=== PATIENT | male | born 1965 | race Caucasian/White ===

== ENCOUNTER → 2019-04-13 12:04 | Outpatient (BNVA) | payer SELFPAY | PROVIDERS: Family Provider Family Medicine; PCP Family Medicine; Visit Provider Family Medicine | DX: I10 Essential (primary) hypertension (principal); L60.0 Ingrowing nail; E66.01 Morbid (severe) obesity due to excess calories | CPT/HCPCS: 80053; 80061; 82044; 85025 ==

== ENCOUNTER → 2019-10-12 14:31 | Outpatient (BNVA) | payer MEDICAID, SELFPAY | PROVIDERS: Family Provider Family Medicine; PCP Family Medicine; Visit Provider Family Medicine | DX: I10 Essential (primary) hypertension (principal); M25.571 Pain in right ankle and joints of right foot; M25.572 Pain in left ankle and joints of left foot; G89.29 Other chronic pain; K22.70 Barrett's esophagus without dysplasia; Z79.891 Long term (current) use of opiate analgesic | CPT/HCPCS: 80307; 80373 ==

== ENCOUNTER → 2020-04-20 11:38 | Outpatient (BNVA) | payer MEDICAID, SELFPAY | PROVIDERS: Family Provider Family Medicine; PCP Family Medicine; Visit Provider Family Medicine | DX: I10 Essential (primary) hypertension (principal); R35.1 Nocturia; E66.01 Morbid (severe) obesity due to excess calories; M25.571 Pain in right ankle and joints of right foot; M25.572 Pain in left ankle and joints of left foot; G89.29 Other chronic pain | CPT/HCPCS: 80053; 80061; 82043; 84153; 85025 ==

== ENCOUNTER 2020-08-21 20:00 | Outpatient (CLI) | payer MEDICARE, MEDICAID, SELFPAY | END 2020-08-21 20:01 | disposition home or self-care (01) | LOC: SLEEP 08-22 08:56 | PROVIDERS: Family Provider Family Medicine; PCP Family Medicine; Visit Provider Family Medicine | DX: G47.10 Hypersomnia, unspecified (principal); R06.83 Snoring; R53.83 Other fatigue; G47.33 Obstructive sleep apnea (adult) (pediatric) | CPT/HCPCS: 95811 ==

== ENCOUNTER → 2020-10-01 14:00 | Outpatient (BNVA) | payer MEDICARE, MEDICAID, SELFPAY | PROVIDERS: Family Provider Family Medicine; PCP Family Medicine; Visit Provider Podiatrist Foot & Ankle Surgery | DX: M79.671 Pain in right foot (principal); M79.672 Pain in left foot; Z79.891 Long term (current) use of opiate analgesic | CPT/HCPCS: 73630 ==

== ENCOUNTER → 2020-10-02 15:26 | Outpatient (BNVA) | payer MEDICARE, MEDICAID, SELFPAY | PROVIDERS: Family Provider Family Medicine; PCP Family Medicine; Visit Provider Podiatrist Foot & Ankle Surgery | DX: M79.671 Pain in right foot (principal); M79.672 Pain in left foot; Z79.891 Long term (current) use of opiate analgesic; E66.01 Morbid (severe) obesity due to excess calories | CPT/HCPCS: 83036 ==

== ENCOUNTER → 2020-11-01 11:45 | Outpatient (BNVA) | payer MEDICARE, MEDICAID, SELFPAY | PROVIDERS: Family Provider Family Medicine; PCP Family Medicine; Visit Provider Podiatrist Foot & Ankle Surgery | DX: M79.671 Pain in right foot (principal); M79.672 Pain in left foot; M21.41 Flat foot [pes planus] (acquired), right foot; M21.42 Flat foot [pes planus] (acquired), left foot; M76.821 Posterior tibial tendinitis, right leg; M76.822 Posterior tibial tendinitis, left leg; E11.42 Type 2 diabetes mellitus with diabetic polyneuropathy; Z79.891 Long term (current) use of opiate analgesic | CPT/HCPCS: 88304 ==

== ENCOUNTER 2020-12-18 14:09 | Outpatient (CLI) | payer MEDICARE, MEDICAID, SELFPAY ==
--- NOTE | 2020-12-18 14:15 | USCV_ITS ---
NOTE: Report was unsigned for reason: Order was edited. Original Signature date and time was: 12/18/20 @ 15[address] Age: 55 Gender: M : 1965 Exam Date: 12/18/2020 14:43 Ordering Phys: Trish Lake MD Technologist: Kim Kumar [place] [facility] [place]: PULMONARY EMBOLIS W/ACUTE PULMONALE BP: 148 / 99 HR: 72 Rhythm: Sinus Technical Quality: Adequate MEASUREMENTS (Male / Female) Normal Values 2D ECHO LV Diastolic Diameter PLAX 6.0 cm 4.2 - 5.9 / 3.9 - 5.3 cm LV Systolic Diameter PLAX 4.1 cm IVS Diastolic Thickness 1.8 cm 0.6 - 1.0 / 0.6 - 0.9 cm IVS Systolic Thickness 2.1 cm LVPW Diastolic Thickness 1.8 cm 0.6 - 1.0 / 0.6 - 0.9 cm LVPW Systolic Thickness 2.4 cm LVOT Diameter 2.0 cm LV Ejection Fraction 2D Teich 58.2 % LV Ejection Fraction MOD 2C 57.8 % LV Ejection Fraction 2C AL 59.7 % LA Diameter 3.6 cm LA Width 3.3 cm LA Height 4.4 cm RA Width 3.1 cm RA Height 4.5 cm Aorta at Sinotubular Diameter 2.9 cm M-MODE Aortic Annulus Diameter 3.1 cm LA Ao Ratio MM 1.1 MV E Point Septal Separation 0.6 cm DOPPLER AV Peak Velocity 129.0 cm/s LVOT Peak Velocity 102.0 cm/s AV Area Cont Eq vti 2.4 cm squared AV Area Cont Eq pk 2.5 cm squared MV Peak Velocity 79.0 cm/s MV Area PHT 3.5 cm squared Mitral E to A Ratio 0.9 MV E' Velocity 36.0 cm/s Mitral E to MV E' Ratio 8.1 Mitral E to LV E' Lateral Ratio 6.3 Mitral E to LV E' Septal Ratio 11.5 TR Peak Velocity 307.1 cm/s TR Peak Gradient 37.7 mmHg TR Mean Velocity 254.1 cm/s TR Mean Gradient 27.0 mmHg TR Velocity Time Integral 74.1 cm TV Peak E Velocity 38.0 cm/s PV Peak Velocity 95.0 cm/s RV Acceleration Time 0.1 s RV Ejection Time 0.3 s RV AcT/ET 0.2 FINDINGS Left Ventricle Normal left ventricular size and systolic function, EF 55 %. No regional wall motion abnormalities. Right Ventricle Normal right ventricular size and systolic function. Right Atrium Normal right atrial size. Left Atrium Normal left atrial size. Mitral Valve Thickened mitral valve. Trace mitral valve regurgitation. Aortic Valve Thickened aortic valve. Tricuspid Valve No gross abnormalities noted Pulmonic Valve No gross abnormalities noted Pericardium Normal pericardium without effusion. Aorta Normal ascending aorta dimension. CONCLUSIONS Normal left ventricular size and systolic function, EF 55 %. No regional wall motion abnormalities. Normal right ventricular size and ejection fraction. No signs of right ventricular pressure overload. Thickened mitral valve. Trace mitral valve regurgitation. There is no pericardial effusion. There are no intracardiac masses. Estimated pulmonary artery peak systolic pressure of 43 mmHg. The PA pressure estimation is difficult because of the poor Doppler signals. Compared to the study from 02/04/2018, there is significant drop in the PA pressure. Dr Jelena Chauhan MD FACC (Electronically Signed) Final Date: 18 December 2020 15:47 S MTDD
== END 2020-12-18 14:10 | disposition home or self-care (01) ==
LOC: US 14:12
PROVIDERS: PCP Family Medicine; Visit Provider Internal Medicine Critical Care Medicine
DX: I26.09 Other pulmonary embolism with acute cor pulmonale (principal)
CPT/HCPCS: 93306

== ENCOUNTER → 2021-03-07 14:47 | Outpatient (BNVA) | payer MEDICARE, MEDICAID, SELFPAY | PROVIDERS: PCP Family Medicine; Visit Provider Family Medicine | DX: I10 Essential (primary) hypertension (principal); R35.1 Nocturia | CPT/HCPCS: 80053; 80061; 82043; 84153; 85025 ==

== ENCOUNTER → 2021-03-25 14:06 | Outpatient (BNVA) | payer MEDICARE, MEDICAID, SELFPAY | PROVIDERS: PCP Family Medicine; Visit Provider Podiatrist Foot & Ankle Surgery | DX: M79.671 Pain in right foot (principal); M25.474 Effusion, right foot; M19.071 Primary osteoarthritis, right ankle and foot | CPT/HCPCS: 73630 ==

== ENCOUNTER → 2021-09-03 15:15 | Outpatient (BNVA) | payer MEDICARE, MEDICAID, SELFPAY | PROVIDERS: PCP Family Medicine; Visit Provider Family Medicine | DX: I10 Essential (primary) hypertension (principal); R35.1 Nocturia; I87.2 Venous insufficiency (chronic) (peripheral) | CPT/HCPCS: 80048 ==

== ENCOUNTER → 2021-11-04 14:27 | Outpatient (BNVA) | payer MEDICARE, MEDICAID, SELFPAY | PROVIDERS: PCP Family Medicine; Visit Provider Podiatrist Foot & Ankle Surgery | DX: I87.2 Venous insufficiency (chronic) (peripheral) (principal); B37.9 Candidiasis, unspecified | CPT/HCPCS: 99213; 99214 ==

== ENCOUNTER 2021-11-23 14:35 | Emergency (ER) | payer MEDICARE, MEDICAID, SELFPAY ==
[2021-11-23 14:57] VITALS: BP 174/112; PULSE 69; RESP 16; TEMP 36.4; O2SAT 95
--- NOTE | 2021-11-23 17:10 | W.ED.ABDPA2 ---
HPI - Abdominal Pain General: Chief Complaint: Abdominal Pain Stated Complaint: Possible bowel obstruction Time Seen by Provider: 11/23/21 16:40 Source: patient Mode of arrival: ambulatory History of Present Illness: 56-year-old male presents to emergency room with complaints of abdominal discomfort and bloating. He is concerned he may have a bowel obstruction. Denies any fever sweats or chills no nausea vomiting or diarrhea. No chest pain. MD elicited complaint: abdominal pain Pertinent past history: constipation Onset (ago): day(s) Pain Consistency: constant Location: Diffuse Severity: moderate Quality: cramping Radiation: none Migration to: no migration Exacerbating factors: nothing Relieving factors: nothing Associated Symptoms: Reports GI cramping; Denies anorexia, belching, bloating, change in bowel habits, change in stool character, chills, coffee ground emesis, constipation, diarrhea, dyspepsia, dysuria, excessive flatus, fever(s), heartburn, hematochezia, hematuria, hematemesis, fecal incontinence, loose stools, melena, nausea, poor appetite, syncope and vomiting Review of Systems Const: Denies: fever(s) or chills ENMT: Denies: throat pain, ear or mastoid pain, nasal discharge or nasal congestion Card: Denies: chest pain, palpitations, irregular heart rhythm or syncope Resp: Denies: dyspnea, productive cough or non-productive cough GI: Reports: abdominal pain and GI cramping; Denies: nausea, vomiting, hematemesis, coffee ground emesis, heartburn, diarrhea, constipation, bloating, belching, excessive flatus, fecal incontinence, change in bowel habits, change in stool character, hematochezia or melena : Denies: flank pain, difficulty urinating, dysuria, urinary frequency or hematuria Skin/Breast: Denies: rash or pruritus PFSH ED PFSH: Medical History Barretts esophagus Benign essential HTN Bilateral anterior knee pain Chronic ankle pain, bilateral Chronic constipation Hiatal hernia Internal hemorrhoid Morbid obesity Obstructive Sleep Apnea-Hypopnea Syndrome Pulmonary thromboembolism Surgical History H/O circumcision Status post surgical removal of nail matrix of toe Family History Father Blood clot in vein Other CAD (coronary artery disease) Cancer Diabetes Social History Smoking and tobacco status: current every day smoker Second hand smoke exposure: No Smoking risk assessment/counseling performed?: No Alcohol intake: current Alcohol intake frequency: holidays/special occasions only Counseling given: No Counseling given: No Lives independently: Yes Current occupational status: disabled Current gender identity: Male Physical Exam Const: COMMON NORMALS: no acute distress GENERAL APPEARANCE: cooperative and comfortable ORIENTATION/CONSCIOUSNESS: Yes awake, Yes oriented to person, Yes oriented to place and Yes oriented to time HENMT: COMMON NORMALS: normocephalic, atraumatic and hearing grossly normal bilaterally HEAD & SCALP: normocephalic and atraumatic Resp: COMMON NORMALS: normal respiratory effort, No retractions, No use of accessory muscles and clear to auscultation bilaterally AUSCULTATION: clear to auscultation bilaterally Cardio: COMMON NORMALS: regular rate, regular rhythm and No murmurs present (Cardio) RATE: regular rate RHYTHM: regular rhythm GI: COMMON NORMALS: No hepatosplenomegaly present AUSCULTATION: Yes normoactive bowel sounds PALPATION: Yes Tenderness to palpation present (GI), No Guarding due to palpation present (GI) and Yes No hepatosplenomegaly present : COMMON NORMALS: Yes no CVA tenderness BLADDER/KIDNEY EXAM: Yes no CVA tenderness Back/Pelvis: COMMON NORMALS: no CVA tenderness Extremity: COMMON NORMALS: normal to inspection, capillary refill normal, no clubbing, cyanosis or edema, no calf tenderness and no pedal edema Neuro: SENSORIUM/ORIENTATION: Yes oriented to person, Yes oriented to place and Yes oriented to time Skin: COMMON NORMALS: no rashes or lesions noted GENERAL SKIN EXAM: no rashes or lesions noted Course Vital Signs: Vital signs: Vital Signs Temperature 97.5 F L 11/23/21 14:57 Pulse Rate 69 11/23/21 14:57 Respiratory Rate 16 11/23/21 14:57 Blood Pressure 174/112 11/23/21 14:57 Pulse Oximetry 95 11/23/21 14:57 Oxygen Delivery Me thod 11/23/21 14:57 MDM - Abdominal Pain Medical Decision Making For constipation denies having bowel movement for 1 week does not have any vomiting. Discharged home with lactulose to use every 4 hours until desired results achieved Medical Records I reviewed the patient's medical records. Lab Data I reviewed the patient's lab results. Discharge Plan Discharge Patient Disposition: Home Clinical Impression: Constipation Condition: Stable Prescriptions: New lactulose 10 gram/15 mL (15 mL) solution 30 g PO Q4H PRN (Reason: constipation) Qty: 750 0RF No Action sucralfate [Carafate] 1 gram tablet 1 g PO Q6H Qty: 360 0RF polyethylene glycol 3350 [Miralax] 17 gram/dose powder 17 g PO DAILY 90 Days Qty: 510 3RF hydrochlorothiazide 25 mg tablet 25 mg PO BID Qty: 180 1RF omega 7-zoo-onc-fish oil [Fish Oil] 1,000 mg (120 mg-180 mg) capsule 1 cap PO DAILY albuterol sulfate [Ventolin HFA] 90 mcg/actuation HFA aerosol inhaler 2 puff inhalation QID PRN (Reason: shortness of breath or wheezing) Qty: 8.5 0RF clotrimazole-betamethasone 1-0.05 % cream 1 applic topical BID 28 Days Qty: 45 1RF (DME) custom AFO and shoe with upright struts that articulate, metatarsal bar See Rx Instructions .Route .MEDSUPPLY Qty: 1 0RF Rx Instructions: As directed [facility] Linzess 145 mcg capsule 145 mcg PO DAILY Qty: 30 2RF (DME) Bilateral Custom AFOs and shoes attached to braces See Rx Instructions .Route .MEDSUPPLY Qty: 1 0RF Rx Instructions: As directed By [facility] Bilateral Shoes to have upright struts that articulate, metatarsal bar, Caliber Plate, and straps. losartan 50 mg tablet 75 mg PO ONCE 90 Days Qty: 135 1RF tramadol 50 mg tablet 50 mg PO BID PRN (Reason: pain) Qty: 60 2RF Rx Instructions: 340 B metoprolol succinate 25 mg tablet extended release 24 hr 25 mg PO DAILY Qty: 90 1RF amlodipine [Norvasc] 5 mg tablet 5 mg PO BID 90 Days Qty: 180 1RF omeprazole 40 mg capsule,delayed release(DR/EC) 40 mg PO DAILY Qty: 90 1RF Eliquis 2.5 mg tablet 2.5 mg PO BID 30 Days Qty: 60 6RF Discharge Orders: Discharge ED (Routine); Ordered 11/23/21 Ordered By: Luis Miguel Gomes Referrals: Veronique Cotter DO [Primary Care Provider] - Discharge Diet: Usual diet Discharge Activity: Increase activity as tolerated Patient Instructions: Constipation - Adult, Constipation (ED), High Fiber Diet (ED), Opioid Safety Activity Restrictions/Additional Instructions: Lactulose every 4 hours until desired results achieved. If symptoms persist follow-up with your primary care doctor. 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
== END 2021-11-23 17:27 | disposition home or self-care (01) ==
PROVIDERS: Emergency Provider Family Medicine; PCP Family Medicine
DX: K59.00 Constipation, unspecified (principal); Z79.01 Long term (current) use of anticoagulants; I10 Essential (primary) hypertension; F17.210 Nicotine dependence, cigarettes, uncomplicated
CPT/HCPCS: 99283

== ENCOUNTER → 2021-12-10 14:11 | Outpatient (BNVA) | payer MEDICARE, MEDICAID, SELFPAY | PROVIDERS: PCP Family Medicine; Visit Provider Internal Medicine Critical Care Medicine | DX: G47.33 Obstructive sleep apnea (adult) (pediatric) (principal); Z86.711 Personal history of pulmonary embolism; Z79.01 Long term (current) use of anticoagulants | CPT/HCPCS: 99214 ==

== ENCOUNTER → 2022-03-04 12:09 | Outpatient (BNVA) | payer MEDICARE, MEDICAID, SELFPAY | PROVIDERS: PCP Family Medicine; Visit Provider Family Medicine | DX: I10 Essential (primary) hypertension (principal); R35.1 Nocturia; Z12.5 Encounter for screening for malignant neoplasm of prostate | CPT/HCPCS: 80053; 80061; 82043; 84153; 85025 ==

== ENCOUNTER → 2022-09-09 13:33 | Outpatient (BNVA) | payer MEDICARE, MEDICAID, SELFPAY | PROVIDERS: PCP Family Medicine; Visit Provider Internal Medicine Pulmonary Disease | DX: G47.33 Obstructive sleep apnea (adult) (pediatric) (principal); Z86.711 Personal history of pulmonary embolism; Z79.01 Long term (current) use of anticoagulants; E66.9 Obesity, unspecified; Z68.43 Body mass index [BMI] 50.0-59.9, adult | CPT/HCPCS: 99214 ==

== ENCOUNTER → 2023-03-09 14:33 | Outpatient (BNVA) | payer MEDICARE, MEDICAID, SELFPAY | PROVIDERS: PCP Family Medicine; Visit Provider Podiatrist Foot & Ankle Surgery | DX: I87.2 Venous insufficiency (chronic) (peripheral); B37.9 Candidiasis, unspecified; M25.571 Pain in right ankle and joints of right foot; M25.572 Pain in left ankle and joints of left foot; G89.29 Other chronic pain; M21.41 Flat foot [pes planus] (acquired), right foot; M21.42 Flat foot [pes planus] (acquired), left foot; M76.821 Posterior tibial tendinitis, right leg; M76.822 Posterior tibial tendinitis, left leg | CPT/HCPCS: 99213 ==

== ENCOUNTER → 2023-03-19 13:34 | Outpatient (BNVA) | payer MEDICARE, MEDICAID, SELFPAY | PROVIDERS: PCP Family Medicine; Visit Provider Family Medicine | DX: E66.01 Morbid (severe) obesity due to excess calories (principal); Z68.43 Body mass index [BMI] 50.0-59.9, adult; I10 Essential (primary) hypertension; Z13.6 Encounter for screening for cardiovascular disorders; R35.1 Nocturia | CPT/HCPCS: 80053; 80061; 82043; 84153; 85025 ==

== ENCOUNTER → 2023-06-11 12:57 | Outpatient (BNVA) | payer MEDICARE, MEDICAID, SELFPAY | PROVIDERS: PCP Family Medicine; Visit Provider Internal Medicine Pulmonary Disease | DX: G47.33 Obstructive sleep apnea (adult) (pediatric) (principal); I26.09 Other pulmonary embolism with acute cor pulmonale | CPT/HCPCS: 99214 ==

== ENCOUNTER → 2024-02-25 12:07 | Outpatient (BNVA) | payer MEDICARE, SELFPAY | PROVIDERS: PCP Family Medicine; Visit Provider Family Medicine | DX: I10 Essential (primary) hypertension (principal); R73.09 Other abnormal glucose; E66.01 Morbid (severe) obesity due to excess calories; Z68.43 Body mass index [BMI] 50.0-59.9, adult | CPT/HCPCS: 80053; 80061; 83036; 84439; 84443; 85025 ==

== ENCOUNTER → 2024-06-14 14:49 | Outpatient (BNVA) | payer MEDICARE, SELFPAY | PROVIDERS: PCP Family Medicine; Visit Provider Podiatrist Foot & Ankle Surgery | DX: M79.671 Pain in right foot (principal); M79.672 Pain in left foot; I87.2 Venous insufficiency (chronic) (peripheral); B37.9 Candidiasis, unspecified; M25.571 Pain in right ankle and joints of right foot; M25.572 Pain in left ankle and joints of left foot; G89.29 Other chronic pain; M21.41 Flat foot [pes planus] (acquired), right foot; M21.42 Flat foot [pes planus] (acquired), left foot; M76.821 Posterior tibial tendinitis, right leg; M76.822 Posterior tibial tendinitis, left leg | CPT/HCPCS: 99213 ==

== ENCOUNTER → 2024-12-20 17:49 | Outpatient (BNVA) | payer MEDICARE, SELFPAY | PROVIDERS: PCP Family Medicine; Visit Provider Emergency Medicine | DX: R30.0 Dysuria (principal); N39.0 Urinary tract infection, site not specified | CPT/HCPCS: 81000; 87086 ==

== ENCOUNTER → 2025-02-22 15:45 | Outpatient (BNVA) | payer MEDICARE, SELFPAY | PROVIDERS: PCP Family Medicine; Visit Provider Family Medicine | DX: I10 Essential (primary) hypertension (principal); R73.09 Other abnormal glucose; N40.1 Benign prostatic hyperplasia with lower urinary tract symptoms; R39.11 Hesitancy of micturition; Z12.5 Encounter for screening for malignant neoplasm of prostate | CPT/HCPCS: 80053; 80061; 83036; 84153; 84439; 84443; 85025 ==